=== PATIENT | male | born 1960 | race Caucasian/White ===

== ENCOUNTER 2018-01-18 01:05 | Emergency (ER) | payer OTHER ==
[~2018-01-18] VITALS: Ht 172.7 cm; Wt 118.2 kg
[2018-01-18] MEDS ORDERED: KETOROLAC TROMETHAMINE 60 MG/2 ML VIAL IM ONE (01:30)
[2018-01-18 02:43] VITALS: BP 159/95
== END 2018-01-18 03:45 | disposition home or self-care (01) ==
LOC: EMS 01:06
DX: S76.012A Strain of muscle, fascia and tendon of left hip, initial encounter (principal); R29.6 Repeated falls; J44.9 Chronic obstructive pulmonary disease, unspecified; J45.909 Unspecified asthma, uncomplicated; F11.90 Opioid use, unspecified, uncomplicated; Z96.642 Presence of left artificial hip joint; Z88.2 Allergy status to sulfonamides; Z88.0 Allergy status to penicillin; Z88.8 Allergy status to other drugs, medicaments and biological substances; W01.0XXA Fall on same level from slipping, tripping and stumbling without subsequent striking against object, initial encounter; Y93.89 Activity, other specified; Y92.89 Other specified places as the place of occurrence of the external cause; Y99.8 Other external cause status
CPT/HCPCS: 73503; 99284; J1885

== ENCOUNTER 2018-10-22 20:00 | Emergency (ER) | payer OTHER ==
[~2018-10-22] VITALS: Ht 172.7 cm; Wt 84.1 kg
[2018-10-22 20:41] VITALS: BP 99/70
== END 2018-10-22 22:00 | disposition home or self-care (01) ==
LOC: EMS 20:01
DX: F10.129 Alcohol abuse with intoxication, unspecified (principal); M25.559 Pain in unspecified hip; J44.9 Chronic obstructive pulmonary disease, unspecified; F12.90 Cannabis use, unspecified, uncomplicated; F11.90 Opioid use, unspecified, uncomplicated; Z88.2 Allergy status to sulfonamides; Z88.0 Allergy status to penicillin; Z91.041 Radiographic dye allergy status; Z96.642 Presence of left artificial hip joint